=== PATIENT | female | born 1970 | race Caucasian/White ===

== ENCOUNTER → 2023-07-20 11:08 | Outpatient (BNVA) | payer OTHER, SELFPAY | PROVIDERS: Family Provider Family Medicine; PCP Family Medicine Adult Medicine; Visit Provider Family Medicine Adult Medicine | DX: K58.9 Irritable bowel syndrome, unspecified (principal); R55 Syncope and collapse | CPT/HCPCS: 80053; 80061; 84443; 85025 ==

== ENCOUNTER 2023-07-27 11:37 | Outpatient (CLI) | payer OTHER, SELFPAY ==
--- NOTE | 2023-07-27 12:00 | MM_ITS ---
WS: [id number] Exam: [id number] Date/Time of Exam: 07/27/2023 11:43 AM Reason For Exam: screen VIEWS: MLO and CC views both breasts. 3D digital tomosynthesis is also included in this exam. Comparison made with prior exam of 02/03/2016. Findings: There was no sign of mass, architectural distortion or suspicious calcification in either breast. The re are scattered areas of fibroglandular density MM/[id number] Impression: BI-RADS: 1-Negative FOLLOW-UP: 1 Year Follow-up This mammogram was also analyzed by the Computer Aided Detection System R2 Imag e Clinical Transplant Coordinator.
== END 2023-07-27 11:38 | disposition home or self-care (01) ==
LOC: RAD 11:37
PROVIDERS: Family Provider Family Medicine; PCP Family Medicine Adult Medicine; Visit Provider Family Medicine Adult Medicine
DX: Z12.31 Encounter for screening mammogram for malignant neoplasm of breast (principal); R92.323 Mammographic fibroglandular density, bilateral breasts
CPT/HCPCS: 77067

== ENCOUNTER 2023-09-27 06:49 | Day surgery (SDC) | payer OTHER, SELFPAY ==
[2023-09-27 07:14] VITALS: BP 142/99; PULSE 75; RESP 20; TEMP 36.6; O2SAT 95; BMI 34.3
[2023-09-27] MEDS: sodium chloride 0.9% 1,000 ML 30 ML IV (07:20)
--- NOTE | 2023-09-27 07:22 | ANES.PREANE2 ---
Pre-Anesthetic Assessment Height/Weight: Height 1.63 m Weight 90.718 kg Temp Pulse Resp BP Pulse Ox O2 Del Method 98 F 75 20 H 142/99 95 Room Air 09/27/23 07:14 09/27/23 07:14 09/27/23 07:14 09/27/23 07:14 09/27/23 07:14 09/27/23 07:14 Preop Diagnosis: diarrhea Operation Date: 09/27/23 08:00 Proposed Procedures p EGD 81300, 70404, G0105, K52.9, R19.8, R10.9(Not Applicable) - Viet Geller DO s Colonoscopy(Not Applicable) - Viet Geller DO Familial anesthetic complications: none Was Beta Flor taken within 24 hours: N/A Was Clonidine taken within 24 hours: N/A Last intake: Intake Last Liquid Date 09/26/23 Last Liquid Time 22:30 Last Solid Date 09/25/23 Last Solid Time 23:30 Social No alcohol and No tobacco Exam alert, oriented x 3, clear to auscultation bilaterally and regular rate & rhythm Airway Submandibular: within normal limits Cervical ROM: within normal limits Mallampati: Class II Dentition: false History/ROS No significant history except as noted and No significant complaints Pulmonary None reported CV/HEM None reported None reported Hepatic None reported GI None reported difficulty swallowing Metabolic None reported Musc/skel None reported Neuropsych None reported Anesthetic Plan ASA status: 1 Anesthesia: MAC Risk of > 500 ml blood loss (7ml/kg in children): No Medications/Allergies Home Medications Medication Instructions Recorded Confirmed Last Taken Type No Known Home Medications 07/27/23 09/25/23 Unknown History Allergies Allergy/AdvReac Type Severity Reaction Status Date / Time No Known Allergies Allergy Verified 09/25/23 10:04 [facility] Anesthesia Medical History (Updated 08/30/23 @ 06:50 by Landry Jean MD) Encounter for wellness examination Colon cancer screening Syncopal episodes IBS (irritable bowel syndrome) Family History Father Cancer Colon cancer Hypertension Grandmother Cancer Other Diabetes Hyperlipidemia Denies family history of Ovarian cancer Prostate cancer Heart disease Breast cancer Uterine cancer Thyroid disease Stroke Social History Second hand smoke exposure: No Alcohol intake: never Marital status: Single Number of children: 2 Number of grandchildren: 0 Current occupational status: employed Data Anesthesia Cardiac Studies: No Data to Display
[2023-09-27 07:30] LABS: OR HCG Qualitative Urine Negative (Negative)
--- NOTE | 2023-09-27 08:02 | PM.HP ---
Providers/Chief Complaint Primary Care Provider: Landry Jean MD Chief Complaint: K52.9, R19.8, R10.9 History of Present Illness Deena Maher is a 52 year old female Review of Systems General: Reports: 10 or more systems reviewed and unremarkable except in HPI and below Medications/Allergies Home Medications Medication Instructions Recorded Confirmed Last Taken Type No Known Home Medications 07/27/23 09/25/23 Unknown History Allergies Allergy/AdvReac Type Severity Reaction Status Date / Time No Known Allergies Allergy Verified 09/25/23 10:04 PFSH Acute PFSH: Medical History (Updated 08/30/23 @ 06:50 by Landry Jean MD) Encounter for wellness examination Colon cancer screening Syncopal episodes IBS (irritable bowel syndrome) Family History Father Cancer Colon cancer Hypertension Grandmother Cancer Other Diabetes Hyperlipidemia Denies family history of Ovarian cancer Prostate cancer Heart disease Breast cancer Uterine cancer Thyroid disease Stroke Social History Second hand smoke exposure: No Alcohol intake: never Marital status: Single Number of children: 2 Number of grandchildren: 0 Current occupational status: employed Vitals/I&O/Wt Last Vital Signs Temp 98 F 09/27/23 07:14 Pulse 75 09/27/23 07:14 Resp 20 H 09/27/23 07:14 BP 142/99 09/27/23 07:14 Pulse Ox 95 09/27/23 07:14 O2 Del Method Room Air 09/27/23 07:14 Weight last 48 hrs Weight 200 lb A&P Assessment and plan (1) Chronic diarrhea: (2) Alternating constipation and diarrhea: (3) Abdominal pain: Plan EGD and colonoscopy with random biopsies Attestations Medical Necessity Statement*: Per primary Coding Level of Care Code Acute Code for Chg Fwd Diagnoses Chronic diarrhea K52.9 Alternating constipation and diarrhea R19.8 Abdominal pain R10.9
[2023-09-27 08:31] VITALS: BP 133/96; PULSE 68; RESP 18; TEMP 36.3; O2SAT 93
[2023-09-27 08:44] VITALS: BP 130/75; PULSE 63; RESP 16; TEMP 36.6; O2SAT 94
--- NOTE | 2023-09-27 09:25 | ANE.PACU2 ---
Inpatient post-anesthesia follow up: Airway intact: Yes Vital signs: Temperature 97.8 F Pulse Rate 63 Respiratory Rate 16 Blood Pressure 130/75 Pulse Oximetry 94 Oxygen Delivery Me thod Room Air Oxygen Flow Rate Fraction of Inspir ed Oxygen Hydration adequate: Yes Nausea and vomiting: No Pain level: 1 Mental status: Baseline
[2023-09-27 09:31] LABS: C.Diff PCR (Lab) NEGATIVE (Negative)
== END 2023-09-27 09:27 | disposition home or self-care (01) ==
PROVIDERS: Anesthesiology; PCP Family Medicine Adult Medicine; Visit Provider Surgery
PROC: 0DJ08ZZ Inspection of Upper Intestinal Tract, Via Natural or Artificial Opening Endoscopic (ICD-10-PCS; CPT 43235; principal; 2023-09-27 08:00)
PROC: 0DJD8ZZ Inspection of Lower Intestinal Tract, Via Natural or Artificial Opening Endoscopic (ICD-10-PCS; CPT 45378; 2023-09-27 08:00)
DX: K52.9 Noninfective gastroenteritis and colitis, unspecified (principal); R19.8 Other specified symptoms and signs involving the digestive system and abdomen; R10.9 Unspecified abdominal pain; D12.4 Benign neoplasm of descending colon; K29.50 Unspecified chronic gastritis without bleeding
CPT/HCPCS: 43239; 45380; 45385; 81025; 82274; 83630; 87045; 87177; 87209; 87427; 87449; 87493; 88305; 88342; J2704; J7030

== ENCOUNTER 2023-11-10 06:04 | Outpatient (CLI) | payer OTHER, SELFPAY ==
--- NOTE | 2023-11-10 06:15 | US_ITS ---
WS: [id number] RIGHT UPPER QUADRANT ULTRASOUND HISTORY: abdominal pain COMPARISON: None available. Liver: 14.6 cm in length. Normal size liver. Mild heterogeneity within the liver. No mass identified. Surface of the liver is slightly irregular suggestive of cirrhosis. Portal Vein: Normal hepatopetal flow with monophasic waveform. Gallbladder: Normally distended gallbladder with no stones or wall thickening. CBD: 0.5 cm Pancreas: Normal size and echogenicity. Right kidney: 9.9 cm in length. Normal size and echogenicity. No hydronephrosis or mass. Aorta and IVC: Unremarkable abdominal aorta and IVC. No ascites. US/US gall bladder [id number] IMPRESSION: 1. Normal gallbladder. 2. Mildly heterogeneous liver. No mass identified. Heterogeneity may be due to hepatic steatosis. Also changes of mild cirrhosis.
== END 2023-11-10 06:05 | disposition home or self-care (01) ==
PROVIDERS: PCP Family Medicine Adult Medicine; Visit Provider Surgery
DX: R10.9 Unspecified abdominal pain (principal); R10.13 Epigastric pain
CPT/HCPCS: 76705

== ENCOUNTER 2023-11-30 07:41 | Outpatient (CLI) | payer OTHER, SELFPAY ==
--- NOTE | 2023-11-30 08:00 | NM_ITS ---
WS: [id number] NUCLEAR MEDICINE HIDA SCAN WITH GALLBLADDER EJECTION FRACTION HISTORY: epigastric pain COMPARISON: Gallbladder ultrasound 11/10/2023 TECHNIQUE: The patient was intravenously injected with 7.8 mCi of TC99m Mebrofenin. Immediate imaging over the right upper quadrant was followed by 5 minute image and additional images for a total of 60 minutes. Normal uptake of radiotracer throughout the liver. Activity identified in the gallbladder at 15 minutes and well distended by 60 minutes. Activity in the proximal small bowel was seen by 50 minutes. Good washout of the radiotracer from the liver by 60 minutes. The patient then drank 8 ounces of Ensure Plus. Ejection fraction at 60 minutes was 100%. Normal GB e jection fraction is 35-75%. Post fatty meal symptoms: None. NM/NM hepatobiliary w phar* [id number] IMPRESSION: 1. Normal HIDA scan. 2. Normal gallbladder ejection fraction.
== END 2023-11-30 07:42 | disposition home or self-care (01) ==
PROVIDERS: PCP Family Medicine Adult Medicine; Visit Provider Surgery
DX: R10.13 Epigastric pain (principal)
CPT/HCPCS: 78227; A9537

== ENCOUNTER 2023-12-19 05:48 | Day surgery (SDC) | payer OTHER, SELFPAY ==
[2023-12-19] VITALS (11 sets, daily range): BP systolic 106–145; BP diastolic 68–97; PULSE 54–66; RESP 16–20; TEMP 36.1–36.8; O2SAT 90–98; BMI 35.2
[2023-12-19] MEDS: sodium chloride 0.9% 1,000 ML 30 ML IV (06:24)
[2023-12-19] MEDS: scopolamine 1.5 Patch 1 PATCH TRANSDERMA (06:42)
--- NOTE | 2023-12-19 06:46 | ANES.PREANE2 ---
Pre-Anesthetic Assessment Height/Weight: Height 1.63 m Weight 92.986 kg Temp Pulse Resp BP Pulse Ox O2 Del Method 98.2 F 62 18 106/86 96 Room Air 12/19/23 06:03 12/19/23 06:03 12/19/23 06:03 12/19/23 06:42 12/19/23 06:03 12/19/23 06:10 Operation Date: 12/19/23 07:00 Proposed Procedures p Laparoscopic Cholecystectomy 05088, 19774, K74.60, K82.8(Not Applicable) - Viet Geller DO s Possible Laparoscopic Liver Biopsy/ wedge(Not Applicable) - Viet Geller DO Familial anesthetic complications: None Was Beta Flor taken within 24 hours: N/A Was Clonidine taken within 24 hours: N/A Last intake: Intake Last Liquid Date 12/18/23 Last Liquid Time 20:30 Last Solid Date 12/18/23 Last Solid Time 19:30 Social No alcohol and No tobacco Exam alert, oriented x 3, clear to auscultation bilaterally and regular rate & rhythm Airway Mallampati: Class I Dentition: false Hepatic Cirrhosis Anesthetic Plan ASA status: 3 Anesthesia: General Risk of > 500 ml blood loss (7ml/kg in children): No Medications/Allergies Home Medications Medication Instructions Recorded Confirmed Last Taken Type No Known Home Medications 12/11/23 12/18/23 Unknown History Allergies Allergy/AdvReac Type Severity Reaction Status Date / Time No Known Allergies Allergy Verified 12/11/23 13:55 Current Medications Generic Name Dose Route Start Last Admin Trade Name Freq PRN Reason Stop Dose Admin Sodium Chloride 1,000 mls @ 30 mls/hr 12/19/23 06:00 12/19/23 06:24 Sodium Chloride 0.9% IV 12/20/23 05:59 30 mls/hr .Q24H RUSS Administration PFSH Anesthesia Medical History Encounter for wellness examination Colon cancer screening Syncopal episodes IBS (irritable bowel syndrome) Family History Father Cancer Colon cancer Hypertension Grandmother Cancer Other Diabetes Hyperlipidemia Denies family history of Ovarian cancer Prostate cancer Heart disease Breast cancer Uterine cancer Thyroid disease Stroke Social History Smoking and tobacco/nicotine status: never used tobacco/nicotine Second hand smoke exposure: No Alcohol intake: never Marital status: Single Number of children: 2 Number of grandchildren: 0 Data Anesthesia Cardiac Studies: No Data to Display
--- NOTE | 2023-12-19 06:54 | W.PM.OPSUD ---
Surgery/Procedure H&P Update DATE OF PROCEDURE: December 19, 2023 DATE H&P PERFORMED: 12/11/23 H&P UPDATE INFORMATION: I have reviewed H&P completed within last 30 days, I have examined patient prior to procedure and No changes to prior documentation PLANNED PROCEDURE: Operation Date: 12/19/23 07:00 Proposed Procedures p Laparoscopic Cholecystectomy 78316, 52661, K74.60, K82.8(Not Applicable) - DO katerina Mac Possible Laparoscopic Liver Biopsy/ wedge(Not Applicable) - Viet Geller DO
[2023-12-19 06:59] LABS: OR HCG Qualitative Urine Negative (Negative)
[2023-12-19] MEDS: ceFAZolin 2,000 mg SDV 2000 MG IVP (07:00)
[2023-12-19] MEDS: lidocaine-epi 2% PF 1:200,000 20 mL SDV XX (07:16)
--- NOTE | 2023-12-19 08:03 | P.OP_ITS ---
Operative Report Date of procedure: December 19, 2023 Pre-op diagnosis: Biliary dyskinesia Liver cirrhosis Post-op diagnosis: Biliary dyskinesia Hepatic steatosis Intra-abdominal adhesions Procedure done: Laparoscopic cholecystectomy Laparoscopic lysis of adhesions Laparoscopic wedge liver biopsy Specimens removed/disposition: Gallbladder Wedge liver biopsy Surgeon: Viet Geller DO Brief History: This is a very pleasant 53-year-old female who presented to my office with abdominal pain. She was diagnosed with biliary dyskinesia. Ultrasound also showed hepatic steatosis and possible liver cirrhosis. Laparoscopic cholecystectomy and possible liver wedge biopsy were indicated. The risks and benefits were explained and documented. Procedure: Estimated blood loss: 20 mL Implants: Surgicel Complications: None apparent Description of procedure: Patient was wheeled into the operative room and placed on the OR table in a supine position. Abdomen was inspected prepped and draped in usual sterile fashion. Time-out was performed and all present were in agreement. A 15 blade scalp was used to make a stab incision in the left upper quadrant and intra- abdominal insufflation was achieved using a Veress needle. After localizing the tissue incisions were made and a 5 millimeter trocar was placed into the umbilicus as well as 2 in the right upper quadrant. A 12 millimeter trocar was placed in the epigastrium. There were dense adhesions from the omentum to the liver and the gallbladder. These were taken down with electrocautery laparoscopically. The gallbladder was grasped and elevated. The triangle of Calot was carefully dissected using blunt dissection and electrocautery until the triangle of Calot clearly identified. The cystic duct was clipped proximally and double clipped distally. The duct was then ligated proximally. The cystic artery was doubly clipped and ligated. The gallbladder was then removed from the liver bed using electrocautery. The gallbladder was removed from the abdomen using an Endo- Catch bag through the epigastric incision. The liver bed was inspected and no bleeding was seen. A laparoscopic liver wedge biopsy was then taken using electrocautery. There is a moderate amount of bleeding from the liver which was controlled with electrocautery and a piece of Surgicel. The liver wedge biopsy was removed from the abdomen within an Endo Catch via the epigastric incision. The abdomen was irrigated and suctioned. All ports removed. Skin was washed and dried. Incisions were closed with 4-0 Monocryl in a subcuticular interrupted fashion. Skin glue was applied. Patient tolerated the procedure well.
[2023-12-19] MEDS: fentaNYL 50 mcg/mL INJ 2mL IVP (08:12)
[2023-12-19] MEDS: acetaminophen 1,000 MG/100 ML PIGGYBACK 400 MG IV (09:09)
[2023-12-19] MEDS: ondansetron 2 mg/ML SDV 2 mL 4 MG IVP (09:28)
--- NOTE | 2023-12-19 10:25 | ANE.PACU2 ---
Inpatient post-anesthesia follow up: Airway intact: Yes Vital signs: Temperature 97.2 F Pulse Rate 54 Respiratory Rate 19 Blood Pressure 111/72 Pulse Oximetry 95 Oxygen Delivery Me thod Nasal Cannula Oxygen Flow Rate 2 Fraction of Inspir ed Oxygen Hydration adequate: Yes Nausea and vomiting: No Pain level: 1 Mental status: Baseline
== END 2023-12-19 10:24 | disposition home or self-care (01) ==
PROVIDERS: Anesthesiology; PCP Family Medicine Adult Medicine; Visit Provider Surgery
PROC: 0FT44ZZ Resection of Gallbladder, Percutaneous Endoscopic Approach (ICD-10-PCS; CPT 47562; principal; 2023-12-19 07:00)
PROC: 0FB04ZX Excision of Liver, Percutaneous Endoscopic Approach, Diagnostic (ICD-10-PCS; CPT 47379; 2023-12-19 07:00)
PROC: (CPT 47379; 2023-12-19 07:00)
DX: K81.1 Chronic cholecystitis (principal); K66.0 Peritoneal adhesions (postprocedural) (postinfection); K76.0 Fatty (change of) liver, not elsewhere classified
CPT/HCPCS: 47379; 47562; 81025; 88304; 88307; 88313; J0131; J0690; J1100; J1885; J2250; J2405; J2704; J3010; J3490; J7030

== ENCOUNTER 2023-12-26 22:36 | Observation (INO) | payer OTHER, SELFPAY ==
[2023-12-26 22:40] VITALS: BP 115/85; PULSE 112; RESP 18; TEMP 36.7; O2SAT 94
--- NOTE | 2023-12-26 22:50 | XRR_ITS ---
PROCEDURE INFORMATION: Exam: XR Chest Exam date and time: 12/26/2023 10:57 PM Age: 53 years old Clinical indication: Shortness of breath; Prior surgery; Surgery date: 3-7 days post-operative; Surgery type: Choley last week; Additional info: Right chest pain TECHNIQUE: Imaging protocol: Radiologic exam of the chest. Views: 1 view. COMPARISON: NM hepatobiliary w phar* [id number] 11/30/2023 8:00 AM FINDINGS: Lungs: Poor inspiratory effort. No gross consolidations. Bibasilar atelectasis. Pleural spaces: Unremarkable. No pleural effusion. No pneumothorax. Heart/Mediastinum: Unremarkable. No cardiomegaly. Bones/joints: Unremarkable. XR/XR chest 1V portable [id number] IMPRESSION: Poor inspiratory effort with bibasilar atelectasis.
--- NOTE | 2023-12-26 22:53 | ED_ITS ---
HPI - Abdominal Pain 2 General: Chief Complaint: Abdominal Pain Stated Complaint: post op severe pain in right flank/ underarm Right Time Seen by Provider: 12/26/23 22:47 History of Present Illness: 53-year-old female who presents emergenc y room with pain in her right lower chest/right upper abdomen. She had her gallbladder out a few days ago. She said she been having some mild pain but this evening she had a coughing fit and after this she has severe pain. She says it hurts constantly but worse with deep breathing. No known fevers. No nausea or vomiting. No altered mental status. Related Data Previous Rx's Medication Instructions Recorded docusate sodium 100 mg capsule 100 mg PO BID #14 caps 12/19/23 (Colace) hydrocodone 7.5 mg-acetaminophen 1 tab PO Q6H PRN pain #20 tabs 12/19/23 325 mg tablet Allergies Allergy/AdvReac Type Severity Reaction Status Date / Time No Known Allergies Allergy Verified 12/26/23 22:46 Review of Systems 2 Narrative: Constitutional symptoms: Negative except as documented in HPI. Skin symptoms: Negative except as documented in HPI. Eye symptoms: Negative except as documented in HPI. ENMT symptoms: Negative except as documented in HPI. Respiratory symptoms: Negative except as documented in HPI. Cardiovascular symptoms: Negative except as documented in HPI. Gastrointestinal symptoms: Negative except as documented in HPI. Genitourinary symptoms: Negative except as documented in HPI. Musculoskeletal symptoms: Negative except as documented in HPI. Neurologic symptoms: Negative except as documented in HPI. Psychiatric symptoms: Negative except as documented in HPI. Endocrine symptoms: Negative except as documented in HPI. PFSH ED 2 PFSH: Medical History Encounter for wellness examination Colon cancer screening Syncopal episodes IBS (irritable bowel syndrome) Family History Father Cancer Colon cancer Hypertension Grandmother Cancer Other Diabetes Hyperlipidemia Denies family history of Ovarian cancer Prostate cancer Heart disease Breast cancer Uterine cancer Thyroid disease Stroke Social History Smoking and tobacco/nicotine status: never used tobacco/nicotine Second hand smoke exposure: No Alcohol intake: never Marital status: Single Number of children: 2 Number of grandchildren: 0 Physical Exam 2 Narrative: EXAM NARRATIVE: General: Alert, no acute distress. Skin: Warm, dry. Head: Normocephalic, atraumatic. Neck: Supple, trachea midline. Eye: Extraocular movements are intact. Ears, nose, mouth and throat: mucosa moist. Cardiovascular: Regular, Normal peripheral perfusion. Respiratory: Lungs are clear to auscultation, respirations are non-labored, breath sounds are equal, Symmetrical chest wall expansion. Tenderness to palpation over her right lateral rib cage Gastrointestinal: Soft, Nontender, Non distended Musculoskeletal: Normal ROM, no deformity. Neurological: Alert and oriented, No focal neurological deficit observed. Psychiatric: Cooperative, appropriate mood & affect. Course 2 Vital Signs: Vital signs: Vital Signs Temperature 98.0 F 12/26/23 22:40 Pulse Rate 112 H 12/26/23 22:40 Respiratory Rate 18 12/26/23 22:40 Blood Pressure 115/85 12/26/23 22:40 Pulse Oximetry 94 12/26/23 22:40 Oxygen Delivery Me thod Room Air 12/26/23 22:40 MDM - Abdominal Pain Medical Decision Making Differential diagnosis for patient with chest pain includes but is not limited to and based on the above HPI, review of systems and physical exam: Pneumonia. unstable angina. angina. Acute coronary syndrome / [place]. Pulmonary embolism. Costochondritis / musculoskeletal. Pleurisy. Pericarditis. Esophageal spasm. Pancreatis. Cholecystitis. Orders placed to evaluate differential diagnosis based on the above differential, HPI and physical exam Chest x-ray: Poor respiratory effort. Bilateral atelectasis. No acute process. No infiltrate. No pneumothorax. This was reviewed and interpreted by myself the ER physician. Lab Review: Laboratory results were reviewed and interpreted by myself the emergency room physician. Patient has leukocytosis with white count 13.8. Hemoglobin is 14. BUN/creatinine are normal at 19 and 0.8. No elevation in her liver enzymes. CT of the chest abdomen and pelvis with contrast: Trace right pleural effusion with right lower lobe atelectasis. I wonder if this is not done early developing pneumonia as this is consistent with her symptoms. There is also concern for a collection in the surgical bed that would be suggestive of an early abscess formation. I reviewed the patient's medical record. Consultation: I spoke with Dr. Das who is on-call for general surgery. He agrees to admission and placing the patient on Zosyn. Dr. Geller can see the patient tomorrow. Reexamination: Patient remained stable. No increased work of breathing. No altered mental status. No focal motor deficits. Again the patient states that the pain is worse with cough and movement. I wonder if she is not developing a respiratory infection in the collection in her abdomen is incidental. This can be sorted out tomorrow. Assessment and plan: Intra-abdominal abscess Cough ?IV Zosyn in the emergency room. -I discussed the patient with the hospitalist on-call who is admitting the patient. - Discussed findings and plan with patient. Answered any questions. - All laboratory values were reviewed and interpreted personally by myself, the ER physician - All imaging was reviewed and interpreted personally by myself, the ER physician. - Evaluation and treatment of this problem were appropriate in the emergency setting Lab Data 12/26/23 23:21 12/26/23 23:21 Labs/Radiology: Radiology Impressions Chest X-Ray 12/26/23 22:50 IMPRESSION: Poor inspiratory effort with bibasilar atelectasis. Chest/Abdomen/Pelvis CT 12/27/23 00:01 IMPRESSION: Trace right pleural effusion with right lower lobe atelectasis. IMPRESSION: Post cholecystectomy with a 3 point collection in the surgical bed, suggestive of early abscess formation. Laboratory Results WBC 13.80 10^3/uL (3.29-11.43) H 12/26/23 23:21 RBC 4.73 10^6/uL (3.85-5.65) 12/26/23 23:21 Hgb 14.10 g/dL (11.27-16.99) 12/26/23 23:21 Hct 44.3 % (36-47) 12/26/23 23:21 MCV 93.7 fl (85-98) 12/26/23 23:21 MCH 29.8 pg (27-33) 12/26/23 23:21 MCHC 31.8 g/dL (30-55) 12/26/23 23:21 RDW 13.5 % (12.1-15.1) 12/26/23 23:21 Plt Count 363 10^3/cmm (157-399) 12/26/23 23:21 MPV 10.6 fL (7.4-10.4) H 12/26/23 23:21 Neut % (Auto) 73.3 % 12/26/23 23:21 Lymph % (Auto) 17.5 % 12/26/23 23:21 [place] % (Auto) 7.2 % 12/26/23 23:21 Eos % (Auto) 1.3 % 12/26/23 23:21 Baso % (Auto) 0.4 % 12/26/23 23:21 Neut # (Auto) 10.12 10^3/uL (1.8-7.7) H 12/26/23 23:21 Lymph # (Auto) 2.4 10^3/uL (0.8-4.8) 12/26/23 23:21 [place] # (Auto) 1.0 10^3/uL (0.2-0.9) H 12/26/23 23:21 Eos # (Auto) 0.2 10^3/uL (0.0-0.8) 12/26/23 23:21 Baso # (Auto) 0.1 10^3/uL (0.0-0.1) 12/26/23 23:21 Nucleated RBC % (auto) 0 % 12/26/23 23:21 Nucleated RBCs # 0.0 /100WBC 12/26/23 23:21 Sodium 137 mmol/L (136-145) 12/26/23 23:21 Potassium 3.8 mmol/L (3.5-5.1) 12/26/23 23:21 Chloride 98 mmol/L (98-107) 12/26/23 23:21 Carbon Dioxide 28 mmol/L (22-29) 12/26/23 23:21 Anion Gap 14.8 (5-19) 12/26/23 23:21 BUN 19 mg/dL (6-20) 12/26/23 23:21 Creatinine 0.8 mg/dL (0.5-0.9) 12/26/23 23:21 GFR Calculation 75.6 mL/min (90-130) L 12/26/23 23:21 Glucose 196 mg/dL (65-115) H 12/26/23 23:21 Calculated Osmolality 292 mOsm/kg (285-295) 12/26/23 23:21 Lactic Acid 1.5 mmol/L (0.5-2.2) 12/26/23 23:21 Calcium 9.1 mg/dL (8.5-10.5) 12/26/23 23:21 Total Bilirubin 1.2 mg/dL (0.15-1.2) 12/26/23 23:21 AST 21 U/L (0-32) 12/26/23 23:21 ALT 18 U/L (0-33) 12/26/23 23:21 Alkaline Phosphatase 76 U/L (35-105) 12/26/23 23:21 Total Protein 8.2 g/dL (6.6-8.7) 12/26/23 23:21 Albumin 4.4 g/dL (3.5-5.2) 12/26/23 23:21 Globulin 3.8 g/dL (1.3-4.6) 12/26/23 23:21 Lipase 16 U/L (13-60) 12/26/23 23:21 Urine Color Yellow (Yellow) 12/26/23 23:24 Urine Appearance Clear (CLEAR) 12/26/23 23:24 Urine pH 6.5 (5-7) 12/26/23 23:24 Ur Specific [place] 1.024 (1.005-1.030) 12/26/23 23:24 Urine Protein Trace (Negative) A 12/26/23 23:24 Urine Glucose (UA) Negative (Normal) 12/26/23 23:24 Urine Ketones Negative (Negative) 12/26/23 23:24 Urine Blood Negative (Negative) 12/26/23 23:24 Urine Nitrate Negative (Negative) 12/26/23 23:24 Urine Bilirubin Negative (Negative) 12/26/23 23:24 Urine Urobilinogen 1.0 mg/dL (Negative) 12/26/23 23:24 Ur Leukocyte Esterase Trace (Negative) A 12/26/23 23:24 Urine RBC 0-4 /hpf (0-2) H 12/26/23 23:24 Urine WBC 0-4 /hpf (0-5) H 12/26/23 23:24 Ur Squamous Epith Cells 5-10 /hpf (0-5) H 12/26/23 23:24 Amorphous Sediment Not Reportable 12/26/23 23:24 Urine Bacteria 1+ /hpf (NONE) H 12/26/23 23:24 Urine Mucus 2+ /hpf 12/26/23 23:24 Urine Yeast Trace /hpf 12/26/23 23:24 All radiology interpretation(s) finalized by discharge Discharge Plan Discharge Patient Disposition: Admitted As Inpatient Clinical Impression: Abscess, intra-abdominal, postoperative, Cough, Pleuritic chest pain Condition: Stable Discharge Activity: Increase activity as tolerated Coding Level of Care Code ED Apron Operator for Joyce Barrios
[2023-12-26 23:15] VITALS: BP 111/88; PULSE 85; RESP 21; O2SAT 94
[2023-12-26 23:35] LABS: Basophils # 0.1 10^3/uL (0.0-0.1); Basophils % 0.4 %; Eosinophils # 0.2 10^3/uL (0.0-0.8); Eosinophils % 1.3 %; Hematocrit 44.3 % (36-47); Lymphocytes # 2.4 10^3/uL (0.8-4.8); Lymphocytes % 17.5 %; Mean Corpuscular HGB Conc 31.8 g/dL (30-55); Mean Corpuscular Hemoglobin 29.8 pg (27-33); Mean Corpuscular Volume 93.7 fl (85-98); Mean Platelet Volume 10.6 fL (7.4-10.4); Monocytes % 7.2 %; Neutrophils # 10.12 10^3/uL (1.8-7.7); Neutrophils % 73.3 %; Nucleated Red Blood Cells % 0 %; Platelet Count 363 10^3/cmm (157-399); Red Blood Count 4.73 10^6/uL (3.85-5.65); Red Cell Distribution Width 13.5 % (12.1-15.1)
[2023-12-26 23:41] LABS: Bilirubin Urine Negative (Negative); Blood Urine Negative (Negative); Glucose Urine UA Negative (Normal); Ketones Urine Negative (Negative); Leukocyte Esterase Urine Trace (Negative); Nitrate Urine Negative (Negative); Protein Urine Trace (Negative); Specific Gravity, Urine 1.024 (1.005-1.030); Urine Appearance Clear (CLEAR); Urine Color Yellow (Yellow); pH Urine 6.5 (5-7)
[2023-12-26 23:45] VITALS: BP 122/82; PULSE 88; RESP 22; O2SAT 95
[2023-12-26 23:52] LABS: Alanine Aminotransferase 18 U/L (0-33); Albumin Level 4.4 g/dL (3.5-5.2); Alkaline Phosphatase 76 U/L (35-105); Anion Gap 14.8 (5-19); Aspartate Amino Transferase 21 U/L (0-32); Blood Urea Nitrogen 19 mg/dL (6-20); Calcium 9.1 mg/dL (8.5-10.5); Carbon Dioxide 28 mmol/L (22-29); Chloride 98 mmol/L (98-107); Creatinine Clr Calc Pharmacy 91.9547; Globulin 3.8 g/dL (1.3-4.6); Glomerular Filtration Rate 75.6 mL/min (90-130); Glucose 196 mg/dL (65-115); Lipase 16 U/L (13-60); Osmolality Calculated 292 mOsm/kg (285-295); Potassium 3.8 mmol/L (3.5-5.1); Sodium 137 mmol/L (136-145); Total Bilirubin 1.2 mg/dL (0.15-1.2); Total Protein 8.2 g/dL (6.6-8.7)
[2023-12-26 23:52] LABS: Bacteria Urine 1+ /hpf; RBC Urine 0-4 /hpf (0-2); WBC Urine 0-4 /hpf (0-5)
[2023-12-26 23:53] LABS: Add Urine Culture? No; Mucus Urine 2+ /hpf
[2023-12-26 23:53] LABS: Lactic Sepsis W/Reflex 1.5 mmol/L (0.5-2.2)
[2023-12-27] VITALS (13 sets, daily range): BP systolic 92–124; BP diastolic 62–82; PULSE 68–88; RESP 16–21; TEMP 36.6–37.4; O2SAT 90–94; BMI 35.2
--- NOTE | 2023-12-27 00:01 | CTR_ITS ---
PROCEDURE INFORMATION: Exam: CT Chest With Contrast; Diagnostic Exam date and time: 12/26/2023 11:59 PM Age: 53 years old Clinical indication: Abdominal pain; Localized; Right upper quadrant (ruq); Chest wall pain; Prior surgery; Surgery date: 3-7 days post-operative; Surgery type: Choley; Additional info: Right upper quadrant, right lower chest pain S/P lap maxime TECHNIQUE: Imaging protocol: Diagnostic computed tomography of the chest with contrast. Radiation optimization: All CT scans at this facility use at least one of these dose optimization techniques: automated exposure control; mA and/or kV adjustment per patient size (includes targeted exams where dose is matched to clinical indication); or iterative reconstruction. Contrast material: OMNI 350; Contrast volume: 100 ml; Contrast route: INTRAVENOUS (IV); COMPARISON: CR (CHEST, ) 12/26/2023 10:57 PM RADIATION DOSE METRICS: Total DLP (mGy-cm): 547.1 FINDINGS: Lungs: Atelectatic changes in both lower lobes. No focal consolidation. Pleural spaces: Small right pleural effusion. No left effusion. Heart: Unremarkable. No cardiomegaly. No pericardial effusion. Lymph nodes: Unremarkable. No enlarged lymph nodes. Vasculature: Unremarkable. No aortic aneurysm. Bones/joints: Mild multilevel degenerative of the thoracic spine with small anterior osteophytes. Mild curvature of the thoracic spine convex to the left. Soft tissues: Unremarkable. PROCEDURE INFORMATION: Exam: CT Abdomen And Pelvis With Contrast Exam date and time: 12/26/2023 11:59 PM Age: 53 years old Clinical indication: Abdominal pain; Localized; Right upper quadrant (ruq); Chest wall pain; Prior surgery; Surgery date: 3-7 days post-operative; Surgery type: Choley; Additional info: Right upper quadrant, right lower chest pain S/P lap maxime TECHNIQUE: Imaging protocol: Computed tomography of the abdomen and pelvis with contrast. Radiation optimization: All CT scans at this facility use at least one of these dose optimization techniques: automated exposure control; mA and/or kV adjustment per patient size (includes targeted exams where dose is matched to clinical indication); or iterative reconstruction. Contrast material: OMNI 350; Contrast volume: 100 ml; Contrast route: INTRAVENOUS (IV); COMPARISON: NM hepatobiliary w phar* [id number] 11/30/2023 8:00 AM RADIATION DOSE METRICS: Total DLP (mGy-cm): 861.3 FINDINGS: Liver: Normal. No mass. Gallbladder and biliary ducts: Post cholecystectomy. There is a 3.8 x 2.8 cm fluid collection with pockets of air in the gallbladder fossa at the surgical bed. Pancreas: Normal. No ductal dilation. Spleen: Calcified granulomas in the spleen. Adrenal glands: Normal. No mass. Kidneys and ureters: Normal. No hydronephrosis. Stomach and bowel: Unremarkable. No obstruction. No mucosal thickening. Appendix: No evidence of appendicitis. Intraperitoneal space: Unremarkable. No free air. No significant fluid collection. Vasculature: Pelvic phleboliths. Lymph nodes: Unremarkable. No enlarged lymph nodes. Urinary bladder: Unremarkable as visualized. Reproductive: Unremarkable as visualized. Bones/joints: There are small multilevel anterior osteophytes of the lumbar spine. Soft tissues: Fat containing umbilical hernia. CT/CT chest abdpel w/*[id number] IMPRESSION: Trace right pleural effusion with right lower lobe atelectasis. IMPRESSION: Post cholecystectomy with a 3 point collection in the surgical bed, suggestive of early abscess formation.
[2023-12-27] MEDS: iohexol 350 mg/mL 500 mL Btl (per mL) IV (00:05)
[2023-12-27] MEDS: piperacillin-tazobactam 4.5 GM in sodium chloride 0.9% (plus) 50 ML IV (00:46)
[2023-12-27] MEDS: lactated ringers 1,000 ML 100 ML IV ×2 (02:44→14:10)
[2023-12-27] MEDS: pantoprazole 40 mg SDV IVP (02:44)
--- NOTE | 2023-12-27 06:38 | PHA.VACGOAL ---
Vancomycin Goal - Goal Vancomycin Goal:: 15-20 mg/L Vancomycin Indication:: Pneumonia - Therapy Current therapy:: Pip/Tazo Day of therpy:: Day []of [] . Actual body weight (kg): 205 lb 9.6 oz - Data Labs: WBC 13.80 10^3/uL (3.29-11.43) H 12/26/23 23:21 RBC 4.73 10^6/uL (3.85-5.65) 12/26/23 23:21 Hgb 14.10 g/dL (11.27-16.99) 12/26/23 23:21 Hct 44.3 % (36-47) 12/26/23 23:21 MCV 93.7 fl (85-98) 12/26/23 23:21 MCH 29.8 pg (27-33) 12/26/23 23:21 MCHC 31.8 g/dL (30-55) 12/26/23 23:21 RDW 13.5 % (12.1-15.1) 12/26/23 23:21 Sodium 137 mmol/L (136-145) 12/26/23 23:21 Potassium 3.8 mmol/L (3.5-5.1) 12/26/23 23:21 Chloride 98 mmol/L (98-107) 12/26/23 23:21 Carbon Dioxide 28 mmol/L (22-29) 12/26/23 23:21 Anion Gap 14.8 (5-19) 12/26/23 23:21 BUN 19 mg/dL (6-20) 12/26/23 23:21 Creatinine 0.8 mg/dL (0.5-0.9) 12/26/23 23:21 GFR Calculation 75.6 mL/min (90-130) L 12/26/23 23:21 Treatment plan:: new consult Regimen:: 1500 MG Q12H PER CHART
--- NOTE | 2023-12-27 06:47 | P.HP_ITS ---
Providers/Chief Complaint 2 Admitting Physician: Jewel Silvestre MD Primary Care Provider: Landry Jean MD Chief Complaint: post op severe pain in right flank/ underarm Right History of Present Illness Deena Maher is a 53 year old female who is 7 days status post laparoscopic cholecystectomy and wedge liver biopsy by Dr. Geller, she presented to the hospital overnight complaining of abdominal pain currently on the right upper quadrant and right flank. According to the patient pain has been continuous since surgery but over the last 24 hours has gotten worse and she started to have some chills. Workup in the ER showed elevated white count and a CT scan show evidence of a 3 x 2 cm abscess on the liver bed. We were consulted for these findings. Review of Systems 2 General: Reports: 10 or more systems reviewed and unremarkable except in HPI and below Medications/Allergies Home Medications Medication Instructions Recorded Confirmed Last Taken Type docusate sodium 100 mg capsule 100 mg PO BID #14 caps 12/19/23 Unknown Rx (Colace) hydrocodone 7.5 mg-acetaminophen 1 tab PO Q6H PRN pain #20 tabs 12/19/23 Unknown Rx 325 mg tablet Allergies Allergy/AdvReac Type Severity Reaction Status Date / Time No Known Allergies Allergy Verified 12/26/23 22:46 PFSH Acute 2 PFSH: Medical History Encounter for wellness examination Colon cancer screening Syncopal episodes IBS (irritable bowel syndrome) Family History Father Cancer Colon cancer Hypertension Grandmother Cancer Other Diabetes Hyperlipidemia Denies family history of Ovarian cancer Prostate cancer Heart disease Breast cancer Uterine cancer Thyroid disease Stroke Social History Smoking and tobacco/nicotine status: never used tobacco/nicotine Second hand smoke exposure: No Alcohol intake: never Marital status: Single Number of children: 2 Number of grandchildren: 0 Vitals/I&O/Wt Last Vital Signs Temp 98.1 F 12/27/23 04:00 Pulse 73 12/27/23 04:00 Resp 16 12/27/23 04:00 BP 107/76 12/27/23 04:00 Pulse Ox 92 12/27/23 04:00 O2 Del Method Room Air 12/27/23 04:00 12/26/23 12/26/23 12/27/23 14:59 22:59 06:59 Intake Total 50 / 50 Balance 50 / 50 Weight last 48 hrs Weight 205 lb 9.6 oz Weight 205 lb Weight 205 lb Physical Exam 2 GI: OTHER: Abdomen is soft, moderately tender in the right upper quadrant surgical incisions are healing well. Data 12/26/23 23:21 12/26/23 23:21 Micro: Microbiology 12/27/23 00:19 Blood Culture - Preliminary Blood SPECIMEN COLLECTED 12/26/23 23:21 Blood Culture - Preliminary Blood SPECIMEN COLLECTED A&P Assessment and plan (1) Abscess, intra-abdominal, postoperative: Plan This is a 53-year-old female status post laparoscopic cholecystectomy and wedge resection who presents with an intra-abdominal abscess. After my evaluation we have decided to admit the patient for IV antibiotics, patient will be kept n.p.o. overnight, I will discuss the case with my colleague Dr. Geller this morning as he was the primary surgeon for this patient to decide whether or not the patient will require drainage versus just antibiotics alone. Additional workup and management will be discussed with Dr. Geller before been implemented. -N.p.o. -IV fluids -Pain control -Zosyn and Vanc Attestations 2 Medical Necessity Statement*: Patient will require 72 hours of hospital stay or more for IV antibiotics for intra-abdominal abscess Coding Level of Care Code Acute Code for Chg Fwd Diagnoses Abscess, intra-abdominal, postoperative T81.43XA; K65.1
[2023-12-27] MEDS: vancomycin 1,500 MG/300 ML PIGGYBACK 200 MG IV ×2 (07:22→17:33)
[2023-12-27 07:27] LABS: Basophils # 0.1 10^3/uL (0.0-0.1); Basophils % 0.4 %; Eosinophils # 0.1 10^3/uL (0.0-0.8); Eosinophils % 0.8 %; Hematocrit 36.7 % (36-47); Lymphocytes # 2.2 10^3/uL (0.8-4.8); Lymphocytes % 19.5 %; Mean Corpuscular HGB Conc 32.2 g/dL (30-55); Mean Corpuscular Hemoglobin 29.6 pg (27-33); Mean Corpuscular Volume 92.2 fl (85-98); Mean Platelet Volume 10.5 fL (7.4-10.4); Monocytes # 1.2 10^3/uL (0.2-0.9); Monocytes % 10.3 %; Neutrophils # 7.77 10^3/uL (1.8-7.7); Neutrophils % 68.7 %; Nucleated Red Blood Cells % 0 %; Platelet Count 279 10^3/cmm (157-399); Red Blood Count 3.98 10^6/uL (3.85-5.65); Red Cell Distribution Width 13.4 % (12.1-15.1)
--- NOTE | 2023-12-27 07:44 | PM.MISC ---
Miscellaneous Note Purpose of Documentation: Update on patient care Note: I have discussed the case with Dr. Geller, after review of imaging and taking consideration the operation done, there is a high likelihood that this fluid collection noted on CT scan corresponds to Surgicel that was left on the wedge resection area of the liver. Antibiotic management will be started and the patient is stable over the next 24 hours she will be discharged home.
[2023-12-27] MEDS: HYDROmorphone 1 mg/mL INJ 1 mL 0.4 MG IVP ×2 (08:26→19:28)
[2023-12-27] MEDS: piperacillin-tazobactam 3.375 GM in sodium chloride 0.9% (plus) 50 ML IV ×2 (10:03→17:28)
[2023-12-27] MEDS: ondansetron 2 mg/ML SDV 2 mL 4 MG IVP (11:20)
[2023-12-27] MEDS: acetaminophen 325 mg Tablet 650 MG PO ×2 (15:14→21:27)
[2023-12-27] MEDS: HYDROcodone-acetaminophen 7.5-325 mg Tablet 1 TAB PO (17:29)
[2023-12-27] MEDS: ketorolac 30 mg/mL INJ 15 MG IVP (21:28)
[2023-12-28] VITALS: BP 91/58; PULSE 82; RESP 20; TEMP 36.8; O2SAT 90
[2023-12-28] MEDS: piperacillin-tazobactam 3.375 GM in sodium chloride 0.9% (plus) 50 ML IV ×3 (00:42→17:31)
[2023-12-28] MEDS: acetaminophen 325 mg Tablet 650 MG PO ×3 (02:23→20:57)
[2023-12-28] MEDS: pantoprazole 40 mg SDV IVP (02:23)
[2023-12-28 04:00] VITALS: BP 93/62; PULSE 59; RESP 16; TEMP 36.5; O2SAT 91
[2023-12-28 05:39] LABS: Basophils % 0.3 %; Eosinophils # 0.1 10^3/uL (0.0-0.8); Eosinophils % 0.6 %; Hematocrit 35.9 % (36-47); Lymphocytes # 1.5 10^3/uL (0.8-4.8); Lymphocytes % 12.2 %; Mean Corpuscular HGB Conc 31.2 g/dL (30-55); Mean Corpuscular Hemoglobin 29.8 pg (27-33); Mean Corpuscular Volume 95.5 fl (85-98); Mean Platelet Volume 10.5 fL (7.4-10.4); Monocytes # 1.1 10^3/uL (0.2-0.9); Monocytes % 8.3 %; Neutrophils # 9.83 10^3/uL (1.8-7.7); Nucleated Red Blood Cells % 0 %; Platelet Count 264 10^3/cmm (157-399); Red Blood Count 3.76 10^6/uL (3.85-5.65); Red Cell Distribution Width 13.8 % (12.1-15.1)
[2023-12-28] MEDS: vancomycin 1,500 MG/300 ML PIGGYBACK 300 MG IV (05:49)
[2023-12-28 06:07] LABS: Blood Urea Nitrogen 16 mg/dL (6-20); Calcium 8.4 mg/dL (8.5-10.5); Carbon Dioxide 26 mmol/L (22-29); Chloride 100 mmol/L (98-107); Creatinine Clr Calc Pharmacy 107.8145; Glomerular Filtration Rate 88.2 mL/min (90-130); Glucose 136 mg/dL (65-115); Magnesium 1.9 mg/dL (1.7-2.3); Osmolality Calculated 283 mOsm/kg (285-295); Phosphorus 3.1 mg/dL (2.5-4.5); Sodium 135 mmol/L (136-145)
--- NOTE | 2023-12-28 06:31 | P.PN_ITS ---
Subjective 2 Subjective: To good over the last 24 hours, pain has been better controlled, She is pulling up700 in the incentive spirometer. Vitals/I&O/Wt Last Vital Signs Temp 97.7 F 12/28/23 04:00 Pulse 59 L 12/28/23 04:00 Resp 16 12/28/23 04:00 BP 93/62 12/28/23 04:00 Pulse Ox 91 12/28/23 04:00 O2 Del Method Room Air 12/28/23 04:00 12/27/23 12/27/23 12/28/23 14:59 22:59 06:59 Intake Total 1433.833 / 1433.833 918.333 / 2352.166 371.667 / 2723.833 Balance 1433.833 / 1433.833 918.333 / 2352.166 371.667 / 2723.833 Weight last 48 hrs Weight 215 lb Weight 205 lb 9.6 oz Weight 205 lb Weight 205 lb Physical Exam 2 GI: OTHER: Abdomen is soft, appropriately tender to palpation in the right upper quadrant surgical incisions are healing well. Data 12/28/23 05:23 12/28/23 05:23 Micro: Microbiology 12/27/23 00:19 Blood Culture - Preliminary Blood NEGATIVE TO DATE 12/26/23 23:21 Blood Culture - Preliminary Blood NEGATIVE TO DATE A&P Assessment and plan (1) Abdominal pain: (2) Abscess, intra-abdominal, postoperative: (3) Atelectasis: Plan This hospital day 1 after patient was admitted to the status post laparoscopically cystectomy for suspected intra-abdominal abscess. After review of the imaging with medical Dr. Geller who was the primary surgeon it was determined that this likely represents just the Surgicel that was left in the abdomen. Initial blood she has atelectasis on the right as well as a possible consolidation in the right lower lung, she has been started antibiotics and incentive spirometer. Care progression has been stable, her white count slightly up trended today but clinically is improving. She has been afebrile heart rate has been normal. Plan will be to continue IV antibiotic therapy and incentive spirometer, a white count is stable or normalizes by tomorrow we will probably discharge patient home if there is an uptrend in the white count I will probably rescan her abdomen to ensure that there is no evidence of any additional pathology Attestations 2 Medical Necessity Statement*: Patient has a requirement of 24 to 48 hours of hospital stayFor continued management of intra-abdominal fluid collection and possible pneumonia Coding Level of Care Code Acute Code for Chg Fwd Diagnoses Abdominal pain R10.9 Abscess, intra-abdominal, postoperative T81.43XA; K65.1 Atelectasis J98.11
[2023-12-28 07:42] VITALS: BP 96/68; PULSE 64; RESP 16; TEMP 36.4; O2SAT 90
[2023-12-28 11:30] VITALS: BP 120/76; PULSE 71; RESP 15; TEMP 36.7; O2SAT 92
[2023-12-28] MEDS: ondansetron 2 mg/ML SDV 2 mL 4 MG IVP (15:15)
[2023-12-28 15:31] VITALS: BP 105/64; PULSE 67; RESP 15; TEMP 36.8; O2SAT 92
[2023-12-28] MEDS: vancomycin 1,500 MG/300 ML PIGGYBACK 200 MG IV (17:31)
[2023-12-28 20:00] VITALS: BP 115/75; PULSE 78; RESP 16; TEMP 36.9; O2SAT 90
[2023-12-28] MEDS: metoclopramide 5 mg/mL SDV 2 mL 10 MG IVP (20:57)
[2023-12-29] VITALS: BP 120/74; PULSE 74; RESP 15; TEMP 36.8; O2SAT 91
[2023-12-29] MEDS: piperacillin-tazobactam 3.375 GM in sodium chloride 0.9% (plus) 50 ML IV (01:28)
[2023-12-29] MEDS: pantoprazole 40 mg SDV IVP (02:37)
[2023-12-29] MEDS: acetaminophen 325 mg Tablet 650 MG PO ×2 (02:38→09:36)
[2023-12-29 04:00] VITALS: BP 96/59; PULSE 76; RESP 17; TEMP 36.8; O2SAT 94
[2023-12-29 05:53] LABS: Basophils % 0.2 %; Eosinophils # 0.1 10^3/uL (0.0-0.8); Eosinophils % 1.1 %; Hematocrit 33.6 % (36-47); Lymphocytes # 1.3 10^3/uL (0.8-4.8); Lymphocytes % 12.3 %; Mean Corpuscular HGB Conc 31.5 g/dL (30-55); Mean Corpuscular Hemoglobin 29.8 pg (27-33); Mean Corpuscular Volume 94.4 fl (85-98); Mean Platelet Volume 10.7 fL (7.4-10.4); Monocytes # 0.8 10^3/uL (0.2-0.9); Monocytes % 7.5 %; Neutrophils # 8.34 10^3/uL (1.8-7.7); Neutrophils % 78.5 %; Nucleated Red Blood Cells % 0 %; Platelet Count 282 10^3/cmm (157-399); Red Blood Count 3.56 10^6/uL (3.85-5.65); Red Cell Distribution Width 13.5 % (12.1-15.1); White Blood Count 10.63 10^3/uL (3.29-11.43)
--- NOTE | 2023-12-29 06:00 | XRR_ITS ---
PROCEDURE INFORMATION: Exam: XR Chest Exam date and time: 12/29/2023 8:30 AM Age: 53 years old Clinical indication: Condition or disease; Lung condition and disease; Pneumonia; Additional info: Pneumonia right TECHNIQUE: Imaging protocol: Radiologic exam of the chest. Views: 1 view. COMPARISON: 1. CT chest abdpel w/*[id number] 12/26/2023 11:59 PM 2. CR (CHEST, ) 12/26/2023 10:57 PM FINDINGS: Lungs: There is stable elevation of the right hemidiaphragm with mild interval improvement in linear bibasilar atelectasis. No consolidating infiltrates. Pleural spaces: Unremarkable. No pleural effusion. No pneumothorax. Heart/Mediastinum: The heart size is at the upper limits of normal Bones/joints: Unremarkable. XR/XR chest 1V portable [id number] IMPRESSION: Stable elevation of the right hemidiaphragm with mild interval improvement in linear bibasilar atelectasis
[2023-12-29 06:06] LABS: Anion Gap 14.6 (5-19); Blood Urea Nitrogen 14 mg/dL (6-20); Calcium 8.4 mg/dL (8.5-10.5); Carbon Dioxide 25 mmol/L (22-29); Chloride 103 mmol/L (98-107); Creatinine Clr Calc Pharmacy 150.3922; Glomerular Filtration Rate 130.1 mL/min (90-130); Glucose 100 mg/dL (65-115); Magnesium 1.9 mg/dL (1.7-2.3); Osmolality Calculated 289 mOsm/kg (285-295); Phosphorus 1.8 mg/dL (2.5-4.5); Potassium 3.6 mmol/L (3.5-5.1); Sodium 139 mmol/L (136-145)
[2023-12-29] MEDS: vancomycin 1,500 MG/300 ML PIGGYBACK 200 MG IV (06:13)
[2023-12-29 07:42] VITALS: BP 109/63; PULSE 71; RESP 15; TEMP 36.8; O2SAT 92
--- NOTE | 2023-12-29 08:04 | P.DS_ITS ---
Discharge Providers Date of Admission: 12/27/23 01:57 Date of Discharge: December 29, 2023 Attending Provider at Admission: Jewel Silvestre MD Attending Provider at Discharge: Jewel Silvestre MD Primary Care Provider: Landry Jean MD Diagnoses at Discharge Discharge Diagnosis (1) Abdominal pain: Status: Acute (2) Abscess, intra-abdominal, postoperative: Status: Acute (3) Atelectasis: Status: Acute Reason for Visit Reason for Visit: post op severe pain in right flank/ underarm Right Hospital Course Hospital Course This is a 53-year-old female who was admitted to the hospital 1 week after laparoscopic cholecystectomy for abdominal and right chest pain. A CT scan of the abdomen pelvis showed evidence of some atelectasis and small amount of fluid in the right chest as well as a possible fluid collection anterior to the liver in the area of the wedge resection. Patient was admitted with a suspected diagnosis of intra-abdominal abscess, I discussed the case with the patient primary surgeon Dr. Geller who stated that imaging no slightly correlates with Surgicel that was placed during surgical intervention, this is a likely possi bility, patient clinical status significantly improved and white count trended down to normal, over the last 24 hours she has been stable has been using incentive spirometer and getting up to 7 50-1000, she still have some pleuritic pain but is also improving, she has been afebrile, no tachycardia and no hypotension. At the moment of discharge the patient will receive treatment for possible right lower lobe pneumonia and atelectasis with antibiotics for 10 days and she will return to the clinic to follow-up with Dr. Geller in 2 weeks Physical Exam GI: OTHER: Abdomen is soft nontender nondistended, surgical incisions are well-healed. Discharge Data Studies Completed and Pending Completed Studies During Hospitalization Category Date Time Status CT chest abdpel w/*[id number] Stat Cat Scan 12/27/23 00:01 Completed XR chest 1V portable [id number] Stat Exams 12/26/23 22:50 Completed Pending at discharge Category Date Time Status CXRP [XR chest 1V portable [id number]] Routine Exams 12/29/23 06:00 Ordered Basic Metabolic Panel AM LABS Lab 12/30/23 04:00 Ordered Blood Culture Stat Lab 12/26/23 23:21 Results Complete Blood Count w/Auto AM LABS Lab 12/30/23 04:00 Ordered Magnesium AM LABS Lab 12/30/23 04:00 Ordered Phosphorus AM LABS Lab 12/30/23 04:00 Ordered Radiology Impressions Chest X-Ray 12/26/23 22:50 IMPRESSION: Poor inspiratory effort with bibasilar atelectasis. Chest/Abdomen/Pelvis CT 12/27/23 00:01 IMPRESSION: Trace right pleural effusion with right lower lobe atelectasis. IMPRESSION: Post cholecystectomy with a 3 point collection in the surgical bed, suggestive of early abscess formation. Laboratory Results WBC 10.63 10^3/uL (3.29-11.43) 12/29/23 05:35 RBC 3.56 10^6/uL (3.85-5.65) L 12/29/23 05:35 Hgb 10.60 g/dL (11.27-16.99) L 12/29/23 05:35 Hct 33.6 % (36-47) L 12/29/23 05:35 MCV 94.4 fl (85-98) 12/29/23 05:35 MCH 29.8 pg (27-33) 12/29/23 05:35 MCHC 31.5 g/dL (30-55) 12/29/23 05:35 RDW 13.5 % (12.1-15.1) 12/29/23 05:35 Plt Count 282 10^3/cmm (157-399) 12/29/23 05:35 MPV 10.7 fL (7.4-10.4) H 12/29/23 05:35 Neut % (Auto) 78.5 % 12/29/23 05:35 Lymph % (Auto) 12.3 % 12/29/23 05:35 [place] % (Auto) 7.5 % 12/29/23 05:35 Eos % (Auto) 1.1 % 12/29/23 05:35 Baso % (Auto) 0.2 % 12/29/23 05:35 Neut # (Auto) 8.34 10^3/uL (1.8-7.7) H 12/29/23 05:35 Lymph # (Auto) 1.3 10^3/uL (0.8-4.8) 12/29/23 05:35 [place] # (Auto) 0.8 10^3/uL (0.2-0.9) 12/29/23 05:35 Eos # (Auto) 0.1 10^3/uL (0.0-0.8) 12/29/23 05:35 Baso # (Auto) 0.0 10^3/uL (0.0-0.1) 12/29/23 05:35 Nucleated RBC % (auto) 0 % 12/29/23 05:35 Nucleated RBCs # 0.0 /100WBC 12/29/23 05:35 Sodium 139 mmol/L (136-145) 12/29/23 05:35 Potassium 3.6 mmol/L (3.5-5.1) 12/29/23 05:35 Chloride 103 mmol/L (98-107) 12/29/23 05:35 Carbon Dioxide 25 mmol/L (22-29) 12/29/23 05:35 Anion Gap 14.6 (5-19) 12/29/23 05:35 BUN 14 mg/dL (6-20) 12/29/23 05:35 Creatinine 0.5 mg/dL (0.5-0.9) 12/29/23 05:35 GFR Calculation 130.1 mL/min (90-130) H 12/29/23 05:35 Glucose 100 mg/dL (65-115) 12/29/23 05:35 Calculated Osmolality 289 mOsm/kg (285-295) 12/29/23 05:35 Lactic Acid 1.5 mmol/L (0.5-2.2) 12/26/23 23:21 Calcium 8.4 mg/dL (8.5-10.5) L 12/29/23 05:35 Phosphorus 1.8 mg/dL (2.5-4.5) L 12/29/23 05:35 Magnesium 1.9 mg/dL (1.7-2.3) 12/29/23 05:35 Total Bilirubin 1.2 mg/dL (0.15-1.2) 12/26/23 23:21 AST 21 U/L (0-32) 12/26/23 23:21 ALT 18 U/L (0-33) 12/26/23 23:21 Alkaline Phosphatase 76 U/L (35-105) 12/26/23 23:21 Total Protein 8.2 g/dL (6.6-8.7) 12/26/23 23:21 Albumin 4.4 g/dL (3.5-5.2) 12/26/23 23:21 Globulin 3.8 g/dL (1.3-4.6) 12/26/23 23:21 Lipase 16 U/L (13-60) 12/26/23 23:21 Urine Color Yellow (Yellow) 12/26/23 23:24 Urine Appearance Clear (CLEAR) 12/26/23 23:24 Urine pH 6.5 (5-7) 12/26/23 23:24 Ur Specific [place] 1.024 (1.005-1.030) 12/26/23 23:24 Urine Protein Trace (Negative) A 12/26/23 23:24 Urine Glucose (UA) Negative (Normal) 12/26/23 23:24 Urine Ketones Negative (Negative) 12/26/23 23:24 Urine Blood Negative (Negative) 12/26/23 23:24 Urine Nitrate Negative (Negative) 12/26/23 23:24 Urine Bilirubin Negative (Negative) 12/26/23 23:24 Urine Urobilinogen 1.0 mg/dL (Negative) 12/26/23 23:24 Ur Leukocyte Esterase Trace (Negative) A 12/26/23 23:24 Urine RBC 0-4 /hpf (0-2) H 12/26/23 23:24 Urine WBC 0-4 /hpf (0-5) H 12/26/23 23:24 Ur Squamous Epith Cells 5-10 /hpf (0-5) H 12/26/23 23:24 Amorphous Sediment Not Reportable 12/26/23 23:24 Urine Bacteria 1+ /hpf (NONE) H 12/26/23 23:24 Urine Mucus 2+ /hpf 12/26/23 23:24 Urine Yeast Trace /hpf 12/26/23 23:24 Vancomycin Trough 13.0 ug/mL (10-15) 12/28/23 17:56 Vitals Last Vital Signs Temp 98.2 F 12/29/23 07:42 Pulse 71 12/29/23 07:42 Resp 15 12/29/23 07:42 BP 109/63 12/29/23 07:42 Pulse Ox 92 12/29/23 07:42 O2 Del Method Room Air 11/01/24 07:42 Discharge Plan Discharge Patient Disposition: Home Condition: Stable Prescriptions: New clarithromycin 500 mg tablet 500 mg PO BID 10 Days Qty: 20 0RF amoxicillin-pot clavulanate 875-125 mg tablet 1 tab PO BID Qty: 20 0RF meloxicam 7.5 mg tablet 7.5 mg PO DAILY Qty: 7 0RF metoclopramide HCl 10 mg tablet 10 mg PO Q6H PRN (Reason: nausea and vomiting) 5 Days Qty: 14 0RF Continued polyethylene glycol 3350 [ClearLax] 17 gram/dose powder 17 g PO DAILY PRN (Reason: constipation ) docusate sodium [Colace] 100 mg capsule 100 mg PO BID Qty: 14 0RF Discontinued naproxen sodium [Aleve] 220 mg Tablet 440 mg PO BID PRN (Reason: Pain) hydrocodone-acetaminophen 7.5-325 mg tablet 1 tab PO Q6H PRN (Reason: pain) Qty: 20 0RF Discharge Orders: Discharge Order (Routine); Ordered 12/29/23 Ordered By: Jewel Silvestre Referrals: Viet Geller DO [Physician] - 1 week (1 week We have notified your physician's clinic of the need for a follow-up appointment to be scheduled. If you have not heard from them within the next 2 business days, please call them directly. ) Landry Jean MD [Primary Care Provider] - 7-10 days (We have notified your physician's clinic of the need for a follow-up appointment to be scheduled. If you have not heard from them within the next 2 business days, please call them directly. ) Discharge Diet: Advance as tolerated Discharge Activity: Increase activity as tolerated Patient Instructions: Metoclopramide (By mouth) (Metozolv ODT, PCP 100, Reglan), Amoxicillin/Clavulanate Potassium (By mouth) (Augmentin, Augmentin..., Clarithromycin (By mouth), Meloxicam (By mouth), Abscess (ED), Atelectasis (DC), Opioid Safety Assessment: Please take your antibiotics as indicated, please continue using your incentive spirometer 10 times per hour while you are awake, walk is much as possible this will speed up your recovery. Please follow-up with Dr. Geller next week. Return to the hospital if you have fever, severe abdominal pain despite pain medication. Discharge Attestations Time Spent in Discharge Care*: less than 30 min Quality Metrics Clinical Quality Measures [ No reported AMI, CVA or VTE this stay] Coding Level of Care Code Acute Code for Chg Fwd Diagnoses Abdominal pain R10.9 Abscess, intra-abdominal, postoperative T81.43XA; K65.1 Atelectasis J98.11
[2023-12-29] MEDS: phosphorus 250 mg Tablet PO (09:37)
[2023-12-29 11:29] VITALS: BP 109/63; PULSE 71; RESP 15; TEMP 36.8; O2SAT 92
== END 2023-12-29 11:00 | disposition home or self-care (01) ==
LOC: ER 12-27 01:01 → MEDSURG 12-27 08:20
PROVIDERS: Admitting Provider Surgery; Emergency Provider Emergency Medicine; PCP Family Medicine Adult Medicine; Visit Provider Surgery
DX: J98.11 Atelectasis (principal); T81.43XA Infection following a procedure, organ and space surgical site, initial encounter; K65.1 Peritoneal abscess; R10.9 Unspecified abdominal pain
CPT/HCPCS: 36415; 71045; 71260; 74177; 80048; 80053; 80202; 81001; 83605; 83690; 83735; 84100; 85025; 87040; 94664; 96365; 96367; 96375; 99285; G0378; J1171; J1885; J2405; J2470; J2543; J2765; J3370; J7120

== ENCOUNTER → 2024-01-18 11:16 | Outpatient (BNVA) | payer OTHER, SELFPAY | PROVIDERS: PCP Family Medicine Adult Medicine | DX: K74.60 Unspecified cirrhosis of liver (principal) | CPT/HCPCS: 80053; 81000; 83690; 85025 ==

== ENCOUNTER 2024-12-24 09:20 | Outpatient (CLI) | payer OTHER, SELFPAY ==
--- NOTE | 2024-12-24 09:30 | XRR_ITS ---
PROCEDURE INFORMATION: Exam: XR Right Foot Exam date and time: 12/24/2024 9:36 AM Age: 54 years old Clinical indication: Injury or trauma; Fall; Sprain or strain; Foot; Right; Additional info: Right foot pain after fall TECHNIQUE: Imaging protocol: Radiologic exam of the right foot. Views: 3 or more views. COMPARISON: No relevant prior studies available. FINDINGS: Bones/joints: Normal. Soft tissues: Normal. XR/XR foot RT min 3V* [id number] IMPRESSION: No acute findings.
--- NOTE | 2024-12-24 09:30 | XRR_ITS ---
PROCEDURE INFORMATION: Exam: XR Right Hand Exam date and time: 12/24/2024 9:36 AM Age: 54 years old Clinical indication: Pain; Hand; Right; Additional info: Right hand pain TECHNIQUE: Imaging protocol: Radiologic exam of the right hand. Views: 3 or more views. COMPARISON: No relevant prior studies available. 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 No fracture or dislocation. Soft tissues: Normal. XR/XR hand RT min 3V* [id number] IMPRESSION: 1. 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 2. No fracture or dislocation.
== END 2024-12-24 09:21 | disposition home or self-care (01) ==
PROVIDERS: Visit Provider Pediatrics
DX: M79.671 Pain in right foot (principal); Z76.89 Persons encountering health services in other specified circumstances; M19.041 Primary osteoarthritis, right hand; W19.XXXA Unspecified fall, initial encounter
CPT/HCPCS: 73130; 73630; 80053; 80061; 83036; 84443; 85025

== ENCOUNTER 2025-01-07 08:46 | Outpatient (CLI) | payer OTHER, SELFPAY ==
--- NOTE | 2025-01-07 09:00 | MM_ITS ---
WS: [id number] BILATERAL 3D TOMOSYNTHESIS DIGITAL SCREENING MAMMOGRAPHY WITH CAD CLINICAL INFORMATION: screening HISTORY: Screening mammogram. No current complaints. COMPARISON: 2023 TECHNIQUE: Bilateral CC and MLO views. FINDINGS: Scattered fibroglandular densities bilaterally. No suspicious focal mass, asymmetry, calcifications, or architectural distortion. No evidence of malignancy. MM/MM scr BI tomosynthesis [id number] IMPRESSION: DENSITY: There are scattered areas of fibroglandular density. BI-RADS: 1 - Negative. FOLLOW UP: 1 Year Follow-up Recommend return to annual screening mammography.
== END 2025-01-07 08:47 | disposition home or self-care (01) ==
LOC: RAD 08:46
DX: Z12.31 Encounter for screening mammogram for malignant neoplasm of breast (principal); R92.323 Mammographic fibroglandular density, bilateral breasts
CPT/HCPCS: 77063; 77067